=== PATIENT | male | born 1960 | race Caucasian/White ===

== ENCOUNTER 2021-11-17 12:32 | Outpatient (CLI) | payer BC | END 2021-11-17 12:33 | disposition home or self-care (01) | LOC: BICRAD 12:32 | PROVIDERS: ATTEND Thoracic Surgery (Cardiothoracic Vascular Surgery) | DX: J86.9 Pyothorax without fistula (principal); J90 Pleural effusion, not elsewhere classified | CPT/HCPCS: 71046 ==

== ENCOUNTER 2021-11-18 13:40 | Outpatient (CLI) | payer BC | END 2021-11-18 13:41 | disposition home or self-care (01) | LOC: CT 13:40 | PROVIDERS: ATTEND Thoracic Surgery (Cardiothoracic Vascular Surgery) | DX: J86.9 Pyothorax without fistula (principal); R91.8 Other nonspecific abnormal finding of lung field | CPT/HCPCS: 71250 ==